=== PATIENT | female | born 1945 | race Native Hawaiian/Other Pacific Islander ===

== ENCOUNTER 2016-08-07 13:37 | Outpatient (CLI) | payer OTHER ==
[~2016-08-07 13:37] MED LIST: ALL DAY ALLERGY10 M1 PO; ALLEGRA ALRG180 M1 PO; AVIDOXY100 MG PO; B COMPLE IJ; BENZONATATE200 MG PO; CIPRO500 MG PO; DICY20TA34 PO; ENALAPRIL10 MG PO; ESTR0.6211 PO; FLUT0.05 NAS; HYDR12.54; HYDR25TA15 PO; LATA0.00 OPTH; LEVAQUIN500 MG PO; MACROBID100 MG PO; OMEP20CA PO; OMEPRAZOLE40 MG OR; OMEPRAZOLE40 MG PO; ONDA4TAB3 PO; SOMA250 MG PO; VESICARE5 MG PO; XALATAN0.005 % OP; Z-PAK PO; [UNRECOGNIZED DRUG - OTHER] IM; [UNRECOGNIZED DRUG - OTHER] OPTH; [UNRECOGNIZED DRUG - REMARK] OR
== END 2016-08-07 19:20 | disposition home or self-care (01) ==
LOC: MRI 13:37
DX: M43.12 Spondylolisthesis, cervical region (principal)

== ENCOUNTER 2016-09-09 10:29 | Outpatient (CLI) | payer OTHER | END 2016-09-09 23:41 | disposition home or self-care (01) | LOC: LABW 10:29 | DX: K64.0 First degree hemorrhoids (principal) | CPT/HCPCS: 82272 ==

== ENCOUNTER 2016-09-09 17:00 | Outpatient (CLI) | payer OTHER | END 2016-09-09 23:51 | disposition home or self-care (01) | LOC: LAB 17:00 | DX: N39.0 Urinary tract infection, site not specified (principal) | CPT/HCPCS: 87077; 87086; 87088; 87186 ==

== ENCOUNTER 2017-03-17 13:15 | Outpatient (CLI) | payer OTHER | END 2017-03-17 14:15 | disposition home or self-care (01) | LOC: LAB 13:15 | DX: N39.0 Urinary tract infection, site not specified (principal) | CPT/HCPCS: 87077; 87086; 87088; 87186 ==

== ENCOUNTER 2017-04-11 10:42 | Outpatient (CLI) | payer OTHER ==
[2017-04-11 11:09] LABS: PLATELET COUNT 359 K/uL (152-353)
[2017-04-11 11:28] LABS: POTASSIUM 3.7 mmol/L (3.6-5.2)
== END 2017-04-11 11:45 | disposition home or self-care (01) ==
LOC: LABW 10:42
PROVIDERS: Internal Medicine
DX: R41.82 Altered mental status, unspecified (principal)
CPT/HCPCS: 36415; 80053; 81000; 83880; 84443; 85027; 85379

== ENCOUNTER 2017-05-19 15:44 | Outpatient (CLI) | payer OTHER | END 2017-05-19 19:06 | disposition home or self-care (01) | LOC: RAD 15:44 | DX: R63.4 Abnormal weight loss (principal) ==

== ENCOUNTER 2017-07-30 12:45 | Outpatient (CLI) | payer OTHER | END 2017-07-30 22:04 | disposition home or self-care (01) | LOC: LAB 12:45 | DX: N39.0 Urinary tract infection, site not specified (principal) | CPT/HCPCS: 87077; 87086; 87088; 87186 ==

== ENCOUNTER 2017-08-16 19:39 | Observation (INO) | payer OTHER ==
[~2017-08-16] VITALS: Ht 152.4 cm; Wt 55.1 kg
[2017-08-16 19:35] VITALS: BP 145/62; TEMP 97.7
[2017-08-16 20:05] VITALS: BP 136/54
[2017-08-16 20:26] LABS: PLATELET COUNT 203 K/uL (152-353)
[2017-08-16 20:34] LABS: POTASSIUM 3.8 mmol/L (3.6-5.2); SODIUM 135 mmol/L (136-145)
[2017-08-16 20:50] LABS: PARTIAL THROMBOPLASTIN TIME 26.1 SECONDS (24.5-33.6)
[2017-08-16 21:15] VITALS: BP 145/74
[2017-08-16] MEDS ORDERED: BENTYL10 MG PO (22:52)
[2017-08-16] MEDS ORDERED: ZOFRAN ODT4 MG PO (22:52)
[2017-08-16] MEDS ORDERED: TRAM50TA PO (22:53)
[2017-08-16] MEDS ORDERED: PROTONIX20 MG PO (22:53)
[2017-08-16] MEDS ORDERED: CYCL10TA35 PO (22:54)
[2017-08-16 23:47] VITALS: BP 149/82; TEMP 97.4; Ht 152.4 cm; Wt 55.1 kg
[2017-08-17 04:00] VITALS: BP 118/78; TEMP 98.6
[2017-08-17 06:37] LABS: PLATELET COUNT 179 K/uL (152-353)
[2017-08-17 07:41] LABS: POTASSIUM 3.9 mmol/L (3.6-5.2)
[2017-08-17 08:00] VITALS: BP 135/75; TEMP 98.4
[2017-08-17 09:33] LABS: PLATELET COUNT 179 K/uL (152-353)
[2017-08-17 09:52] LABS: POTASSIUM 3.5 mmol/L (3.6-5.2)
[2017-08-17 12:00] VITALS: BP 132/68; TEMP 98.4
[2017-08-17 16:00] VITALS: BP 140/69; TEMP 98.3
[2017-08-17 20:21] VITALS: BP 149/79; TEMP 98
[2017-08-18] VITALS: BP 161/78; TEMP 98.2
[2017-08-18 04:00] VITALS: BP 168/71; TEMP 98.6
[2017-08-18 06:01] LABS: POTASSIUM 3.6 mmol/L (3.6-5.2)
[2017-08-18 06:32] LABS: PLATELET COUNT 177 K/uL (152-353)
[2017-08-18 08:00] VITALS: BP 170/80; TEMP 98.2
== END 2017-08-18 10:15 | disposition home or self-care (01) ==
LOC: ED 19:39 → MED/SURG 21:59
PROVIDERS: Internal Medicine
DX: R55 Syncope and collapse (principal); N39.0 Urinary tract infection, site not specified; N81.6 Rectocele; R10.84 Generalized abdominal pain; E86.0 Dehydration; R11.2 Nausea with vomiting, unspecified
CPT/HCPCS: 36415; 80053; 82150; 82550; 83690; 84484; 85027; 85610; 85730; 87205; 87328; 87329; 93005; 93225; 96360; 96361; 96366; 96374; 96375; 99220; 99284; G0378; J1170; J2405

== ENCOUNTER 2017-08-27 10:41 | Outpatient (CLI) | payer OTHER ==
[~2017-08-27 10:41] MED LIST changes: +BENTYL10 MG PO; +CYCL10TA35 PO; +PROTONIX20 MG PO; +TRAM50TA PO; +ZOFRAN ODT4 MG PO
[2017-08-27 11:15] LABS: PLATELET COUNT 210 K/uL (152-353)
== END 2017-08-27 22:18 | disposition home or self-care (01) ==
LOC: LABW 10:41
PROVIDERS: Internal Medicine
DX: D50.8 Other iron deficiency anemias (principal)
CPT/HCPCS: 36415; 83540; 85027

== ENCOUNTER 2017-09-30 14:29 | Outpatient (CLI) | payer OTHER | END 2017-10-01 14:29 | disposition home or self-care (01) | LOC: MRI 14:29 | DX: R20.0 Anesthesia of skin (principal); M47.22 Other spondylosis with radiculopathy, cervical region ==

== ENCOUNTER 2018-01-13 07:55 | Outpatient (CLI) | payer OTHER | END 2018-01-13 23:29 | disposition home or self-care (01) | LOC: RAD 07:55 | DX: M85.88 Other specified disorders of bone density and structure, other site (principal) ==

== ENCOUNTER 2018-04-02 08:14 | Outpatient (CLI) | payer OTHER ==
[2018-04-02 08:30] LABS: PLATELET COUNT 254 K/uL (152-353)
[2018-04-02 09:12] LABS: POTASSIUM 4.4 mmol/L (3.6-5.2); SODIUM 138 mmol/L (136-145)
== END 2018-04-02 19:34 | disposition home or self-care (01) ==
LOC: LABW 08:14
PROVIDERS: Internal Medicine
DX: I10 Essential (primary) hypertension (principal)
CPT/HCPCS: 36415; 80053; 80061; 84439; 84443; 85027

== ENCOUNTER 2018-04-09 12:41 | Outpatient (CLI) | payer OTHER | END 2018-04-09 22:19 | disposition home or self-care (01) | LOC: US 12:41 | DX: N13.30 Unspecified hydronephrosis (principal) ==

== ENCOUNTER 2018-04-30 07:43 | Outpatient (CLI) | payer OTHER | END 2018-04-30 19:19 | disposition home or self-care (01) | LOC: LABW 07:43 | PROVIDERS: Internal Medicine | DX: R79.89 Other specified abnormal findings of blood chemistry (principal) | CPT/HCPCS: 36415; 80069; 81000 ==

== ENCOUNTER 2018-12-21 12:33 | Outpatient (CLI) | payer OTHER | END 2018-12-21 19:21 | disposition home or self-care (01) | LOC: LAB 12:33 | DX: N39.0 Urinary tract infection, site not specified (principal) | CPT/HCPCS: 81000; 87077; 87086; 87088; 87186 ==

== ENCOUNTER 2019-01-15 21:06 | Outpatient (CLI) | payer OTHER ==
[~2019-01-15 21:06] MED LIST changes: +AMLO5TAB PO; +ASPIRIN 8181 MG PO; +BACLOFEN10 MG PO; +CLON1TAB18 PO; +DIPH50CA30 PO; +EQ LAXATIVE25 MG OR; +ESTR1TAB13 PO; +ESTRACE2 MG PO; +FENT25DI TD; +FORTAMET500 MG PO; +GABA300C2 PO; +GLIM4TAB PO; +GRALISE600 MG OR; +HUMALOG100 MG/ML SC; +HYDR5TAB9 PO; +INSUINJP SC; +LIPITOR20 MG PO; +LISI10TA11 PO; +MECLIZINE25 MG OR; +NABUMETONE500 MG PO; +PAROXETIN ER12.5 MG OR; +PAROXETINE20 MG OR; +SIMV20TA2 PO; +TRAZ50TA36 PO; +VITAMIN D H1000 UNIT OR; +[UNRECOGNIZED DRUG - OTHER] PO
[2019-01-15] MEDS ORDERED: DICYCLOMINE HYD10 MG PO (21:31)
[2019-01-15] MEDS ORDERED: VITAMIN D32000 UNIT PO (21:32)
[2019-01-15] MEDS ORDERED: ENALAPRIL10 MG PO (21:33)
[2019-01-15] MEDS ORDERED: ALLERGY RELIEF180 MG PO (21:33)
[2019-01-15] MEDS ORDERED: PANTOPRAZOLE SO40 M1 PO (21:33)
[2019-01-15] MEDS ORDERED: ONDANSETRON4 M2 PO (21:34)
[2019-01-15] MEDS ORDERED: CYCLOBENZAPRINE5 MG PO (21:34)
[2019-01-15] MEDS ORDERED: SM IBUPROFEN100 MG PO (21:35)
[2019-01-15] MEDS ORDERED: ALLERGY RELIEF25 MG PO (21:35)
[2019-01-15] MEDS ORDERED: CALCIUM600 M2 PO (21:36)
[2019-01-15] MEDS ORDERED: TYLENOL325 MG PO (21:36)
[2019-01-16] MEDS ORDERED: CALCIUM600 M1 PO (06:35)
[2019-01-16] MEDS ORDERED: CYCL10TA35 PO (06:36)
[2019-01-16] MEDS ORDERED: DICYCLOMINE HYD10 MG PO (06:37)
[2019-01-16] MEDS ORDERED: EQ ALLERGY REL180 MG PO (06:38)
[2019-01-16] MEDS ORDERED: VITAMIN D32000 UNIT PO (06:38)
[2019-01-16] MEDS ORDERED: ENALAPRIL10 MG PO (06:39)
[2019-01-16] MEDS ORDERED: PANTOPRAZOLE 40MG TA PO ×2 (06:40→10:03)
[2019-01-16] MEDS ORDERED: ONDA4TAB3 PO (09:53)
[2019-01-16] MEDS ORDERED: ALLERGY RELIEF25 M1 PO (09:57)
== END 2019-01-15 21:09 | disposition short-term general hospital (02) ==
LOC: AMB 21:06
DX: R55 Syncope and collapse (principal); R10.84 Generalized abdominal pain; R19.7 Diarrhea, unspecified
CPT/HCPCS: A0425; A0427

== ENCOUNTER 2019-01-15 21:18 | Observation (INO) | payer OTHER ==
[~2019-01-15] VITALS: Ht 154.9 cm; Wt 63.6 kg
[2019-01-15] MEDS ORDERED: DICYCLOMINE HYD10 MG PO (21:31)
[2019-01-15] MEDS ORDERED: VITAMIN D32000 UNIT PO (21:32)
[2019-01-15] MEDS ORDERED: ENALAPRIL10 MG PO (21:33)
[2019-01-15] MEDS ORDERED: PANTOPRAZOLE SO40 M1 PO (21:33)
[2019-01-15] MEDS ORDERED: ALLERGY RELIEF180 MG PO (21:33)
[2019-01-15] MEDS ORDERED: CYCLOBENZAPRINE5 MG PO (21:34)
[2019-01-15] MEDS ORDERED: ONDANSETRON4 M2 PO (21:34)
[2019-01-15] MEDS ORDERED: ALLERGY RELIEF25 MG PO (21:35)
[2019-01-15] MEDS ORDERED: SM IBUPROFEN100 MG PO (21:35)
[2019-01-15] MEDS ORDERED: TYLENOL325 MG PO (21:36)
[2019-01-15] MEDS ORDERED: CALCIUM600 M2 PO (21:36)
[2019-01-16] VITALS (15 sets, daily range): BP systolic 112–144; BP diastolic 51–87; TEMP 98–98.7
[2019-01-16] MEDS ORDERED: CALCIUM600 M1 PO (06:35)
[2019-01-16] MEDS ORDERED: CYCL10TA35 PO (06:36)
[2019-01-16] MEDS ORDERED: DICYCLOMINE HYD10 MG PO (06:37)
[2019-01-16] MEDS ORDERED: EQ ALLERGY REL180 MG PO (06:38)
[2019-01-16] MEDS ORDERED: VITAMIN D32000 UNIT PO (06:38)
[2019-01-16] MEDS ORDERED: ENALAPRIL10 MG PO (06:39)
[2019-01-16] MEDS ORDERED: PANTOPRAZOLE 40MG TA PO ×2 (06:40→10:03)
[2019-01-16] MEDS ORDERED: ONDA4TAB3 PO (09:53)
[2019-01-16] MEDS ORDERED: ALLERGY RELIEF25 M1 PO (09:57)
[2019-01-17] VITALS (17 sets, daily range): BP systolic 119–170; BP diastolic 63–88; TEMP 97.4–98.5
[2019-01-17 06:26] LABS: PLATELET COUNT 177 K/uL (152-353)
[2019-01-17 06:38] LABS: POTASSIUM 4.7 mmol/L (3.6-5.2)
[2019-01-18 00:04] VITALS: BP 190/86; TEMP 97.8
[2019-01-18 04:00] VITALS: BP 151/75; TEMP 97.6
[2019-01-18 05:29] LABS: PLATELET COUNT 174 K/uL (152-353)
[2019-01-18 05:46] LABS: POTASSIUM 4.3 mmol/L (3.6-5.2)
[2019-01-18 08:00] VITALS: BP 176/71; TEMP 97.8
[2019-01-18 12:00] VITALS: BP 162/72; TEMP 98.5
== END 2019-01-18 16:00 | disposition home or self-care (01) ==
LOC: ED 21:18 → ICU 01-16 00:56 → MED/SURG 01-17 14:15
PROVIDERS: Family Medicine; Internal Medicine Hematology & Oncology; ADMIT Emergency Medicine
DX: R55 Syncope and collapse (principal); E86.0 Dehydration; K31.84 Gastroparesis; D50.8 Other iron deficiency anemias; D51.9 Vitamin B12 deficiency anemia, unspecified; I12.9 Hypertensive chronic kidney disease with stage 1 through stage 4 chronic kidney disease, or unspecified chronic kidney disease; N18.4 Chronic kidney disease, stage 4 (severe); N39.0 Urinary tract infection, site not specified; E83.42 Hypomagnesemia; R19.7 Diarrhea, unspecified; N81.6 Rectocele
CPT/HCPCS: 36415; 80048; 80053; 81000; 82550; 82553; 82607; 82728; 82746; 83540; 83550; 83735; 84439; 84443; 84484; 85027; 87077; 87086; 87088; 87186; 93005; 93306; 96360; 96361; 96375; 99220; 99285; G0378; J1885; J2405

== ENCOUNTER 2019-02-14 08:53 | Outpatient (CLI) | payer OTHER ==
[~2019-02-14 08:53] MED LIST changes: +ALLERGY RELIEF180 MG PO; +ALLERGY RELIEF25 M1 PO; +ALLERGY RELIEF25 MG PO; +CALCIUM600 M1 PO; +CALCIUM600 M2 PO; +CYCLOBENZAPRINE5 MG PO; +DICYCLOMINE HYD10 MG PO; +EQ ALLERGY REL180 MG PO; +ONDANSETRON4 M2 PO; +PANTOPRAZOLE 40MG TA PO; +PANTOPRAZOLE SO40 M1 PO; +SM IBUPROFEN100 MG PO; +TYLENOL325 MG PO; +VITAMIN D32000 UNIT PO
[2019-02-14 09:07] LABS: PLATELET COUNT 273 K/uL (152-353)
[2019-02-14 09:51] LABS: POTASSIUM 4.6 mmol/L (3.6-5.2)
== END 2019-02-15 05:46 | disposition home or self-care (01) ==
LOC: LABW 08:53
PROVIDERS: Internal Medicine Gastroenterology
DX: D50.8 Other iron deficiency anemias (principal)
CPT/HCPCS: 36415; 80053; 85027

== ENCOUNTER 2019-07-25 11:44 | Outpatient (CLI) | payer OTHER | END 2019-07-25 22:35 | disposition home or self-care (01) | LOC: RAD 11:44 | DX: R05 Cough (principal) ==

== ENCOUNTER 2020-08-07 09:58 | Outpatient (CLI) | payer OTHER ==
[2020-08-07 10:26] LABS: PLATELET COUNT 203 K/uL (152-353)
[2020-08-07 10:47] LABS: POTASSIUM 4.8 mmol/L (3.6-5.2)
== END 2020-08-07 23:17 | disposition home or self-care (01) ==
LOC: LAB 09:58
PROVIDERS: ATTEND Internal Medicine Gastroenterology
DX: K64.8 Other hemorrhoids (principal); R50.9 Fever, unspecified; Z11.59 Encounter for screening for other viral diseases
CPT/HCPCS: 36415; 80053; 82272; 85027; 87635; G2023; U0003

== ENCOUNTER 2020-09-05 08:19 | Outpatient (CLI) | payer OTHER ==
[2020-09-05 08:54] LABS: PLATELET COUNT 212 K/uL (152-353)
== END 2020-09-05 21:37 | disposition home or self-care (01) ==
LOC: LABW 08:19
PROVIDERS: ATTEND Internal Medicine
DX: Z00.00 Encounter for general adult medical examination without abnormal findings (principal); Z13.820 Encounter for screening for osteoporosis; Z79.899 Other long term (current) drug therapy
CPT/HCPCS: 36415; 80053; 80061; 81000; 82306; 84439; 84443; 85027

== ENCOUNTER 2020-09-10 10:24 | Outpatient (CLI) | payer OTHER | END 2020-09-10 19:23 | disposition home or self-care (01) | LOC: MAMMO 10:24 → RAD 11:00 → MAMMO 19:23 | PROVIDERS: ATTEND Internal Medicine | DX: Z12.31 Encounter for screening mammogram for malignant neoplasm of breast (principal); Z13.820 Encounter for screening for osteoporosis; N95.8 Other specified menopausal and perimenopausal disorders ==

== ENCOUNTER 2020-11-01 08:35 | Outpatient (CLI) | payer OTHER ==
[2020-11-01 08:51] LABS: PLATELET COUNT 212 K/uL (152-353)
== END 2020-11-01 20:58 | disposition home or self-care (01) ==
LOC: LABW 08:35
PROVIDERS: ATTEND Internal Medicine Gastroenterology
DX: D50.8 Other iron deficiency anemias (principal)
CPT/HCPCS: 36415; 80053; 85027

== ENCOUNTER 2021-02-05 09:04 | Outpatient (CLI) | payer OTHER ==
[2021-02-05 09:26] LABS: PLATELET COUNT 239 K/uL (152-353)
[2021-02-05 09:40] LABS: POTASSIUM 4.1 mmol/L (3.6-5.2)
== END 2021-02-05 21:34 | disposition home or self-care (01) ==
LOC: LABW 09:04
PROVIDERS: ATTEND Internal Medicine
DX: R10.30 Lower abdominal pain, unspecified (principal)
CPT/HCPCS: 36415; 80053; 81000; 85027

== ENCOUNTER 2021-02-08 07:41 | Outpatient (CLI) | payer OTHER | END 2021-02-08 19:05 | disposition home or self-care (01) | LOC: CT 07:41 | PROVIDERS: ATTEND Internal Medicine | DX: R10.30 Lower abdominal pain, unspecified (principal); R11.2 Nausea with vomiting, unspecified ==

== ENCOUNTER 2021-08-21 08:31 | Outpatient (CLI) | payer OTHER ==
[2021-08-21 08:57] LABS: PLATELET COUNT 216 K/uL (152-353)
[2021-08-21 11:14] LABS: POTASSIUM 4.6 mmol/L (3.6-5.2)
== END 2021-08-21 19:33 | disposition home or self-care (01) ==
LOC: LABW 08:31
PROVIDERS: ATTEND Internal Medicine
DX: N18.4 Chronic kidney disease, stage 4 (severe) (principal); Z79.899 Other long term (current) drug therapy
CPT/HCPCS: 36415; 80053; 80061; 81000; 84443; 85027

== ENCOUNTER 2021-11-12 10:52 | Outpatient (CLI) | payer OTHER ==
[2021-11-12 11:09] LABS: PLATELET COUNT 212 K/uL (152-353)
== END 2021-11-12 19:43 | disposition home or self-care (01) ==
LOC: LABW 10:52
PROVIDERS: ATTEND Internal Medicine Nephrology
DX: N18.4 Chronic kidney disease, stage 4 (severe) (principal); R82.998 Other abnormal findings in urine
CPT/HCPCS: 36415; 80069; 81000; 82043; 82570; 83970; 84156; 85027; 87077; 87086; 87088; 87186

== ENCOUNTER 2021-12-10 08:54 | Outpatient (CLI) | payer OTHER | END 2021-12-10 19:27 | disposition home or self-care (01) | LOC: LABW 08:54 | PROVIDERS: ATTEND Internal Medicine Nephrology | DX: N18.4 Chronic kidney disease, stage 4 (severe) (principal) | CPT/HCPCS: 36415; 80069 ==

== ENCOUNTER 2021-12-21 11:38 | Emergency (ER) | payer OTHER ==
[~2021-12-21] VITALS: Ht 154.9 cm; Wt 63.5 kg
[2021-12-21 11:49] VITALS: TEMP 97.1
[2021-12-21 12:39] LABS: POTASSIUM 4.8 mmol/L (3.6-5.2)
[2021-12-21 12:51] LABS: PLATELET COUNT 226 K/uL (152-353)
[2021-12-21 15:46] VITALS: BP 161/62
== END 2021-12-21 16:41 | disposition short-term general hospital (02) ==
LOC: ED 11:38
PROVIDERS: Family Medicine
PROC: 0D9670Z Drainage of Stomach with Drainage Device, Via Natural or Artificial Opening (ICD-10-PCS; principal; 2021-12-21)
DX: N39.0 Urinary tract infection, site not specified (principal); R10.13 Epigastric pain; R11.2 Nausea with vomiting, unspecified; Z11.52 Encounter for screening for COVID-19
CPT/HCPCS: 36415; 43754; 80053; 81000; 82150; 83690; 85027; 87077; 87086; 87088; 87186; 87635; 96360; 96361; 96365; 96375; 99284; J0696; J1885; J2175; J2405; U0003

== ENCOUNTER 2022-02-20 14:29 | Emergency (ER) | payer OTHER ==
[~2022-02-20] VITALS: Ht 154.9 cm; Wt 62.6 kg
[2022-02-20 14:39] VITALS: TEMP 98
[2022-02-20 14:59] LABS: PLATELET COUNT 218 K/uL (152-353)
[2022-02-20 15:05] LABS: POTASSIUM 4.6 mmol/L (3.6-5.2)
[2022-02-20 15:20] LABS: PARTIAL THROMBOPLASTIN TIME 26.8 SECONDS (24.5-33.6)
[2022-02-20 16:43] VITALS: BP 128/60
== END 2022-02-20 16:46 | disposition home or self-care (01) ==
LOC: ED 14:29
PROVIDERS: Emergency Medicine
DX: R55 Syncope and collapse (principal); E86.0 Dehydration; D64.89 Other specified anemias
CPT/HCPCS: 36415; 80053; 83880; 84484; 85027; 85610; 85730; 93005; 96360; 96374; 99284; J2405

== ENCOUNTER 2022-03-05 11:48 | Outpatient (CLI) | payer OTHER | END 2022-03-05 20:01 | disposition home or self-care (01) | LOC: LAB 11:48 | PROVIDERS: ATTEND Internal Medicine | DX: U07.1 COVID-19 (principal); J40 Bronchitis, not specified as acute or chronic; Z11.52 Encounter for screening for COVID-19 | CPT/HCPCS: 87635; G2023; U0003 ==

== ENCOUNTER 2022-03-14 12:40 | Emergency (ER) | payer OTHER ==
[~2022-03-14] VITALS: Ht 154.9 cm; Wt 62.6 kg
[2022-03-14 12:44] VITALS: TEMP 97.1
[2022-03-14 13:28] LABS: PLATELET COUNT 291 K/uL (152-353)
[2022-03-14 13:40] LABS: POTASSIUM 5.3 mmol/L (3.6-5.2)
[2022-03-14 14:14] VITALS: BP 138/44
== END 2022-03-14 15:54 | disposition short-term general hospital (02) ==
LOC: ED 12:40
PROVIDERS: Emergency Medicine
DX: K56.699 Other intestinal obstruction unspecified as to partial versus complete obstruction (principal); E27.49 Other adrenocortical insufficiency; U07.1 COVID-19
CPT/HCPCS: 36415; 80053; 83690; 84484; 85027; 87635; 93005; 96360; 96374; 96375; 99284; J1170; J2270; J2405; J3490; U0003

== ENCOUNTER 2022-05-09 11:04 | Outpatient (CLI) | payer OTHER ==
[2022-05-09 11:36] LABS: PLATELET COUNT 270 K/uL (152-353)
[2022-05-09 12:21] LABS: POTASSIUM 4.8 mmol/L (3.6-5.2)
== END 2022-05-09 18:52 | disposition home or self-care (01) ==
LOC: LABW 11:04
PROVIDERS: ATTEND Internal Medicine Nephrology
DX: N18.4 Chronic kidney disease, stage 4 (severe) (principal)
CPT/HCPCS: 36415; 80069; 81002; 82043; 82570; 83970; 84156; 85027

== ENCOUNTER 2022-08-05 11:40 | Outpatient (CLI) | payer OTHER | END 2022-08-05 19:18 | disposition home or self-care (01) | LOC: RAD 11:40 | PROVIDERS: ATTEND Internal Medicine | DX: S39.012A Strain of muscle, fascia and tendon of lower back, initial encounter (principal); Y92.89 Other specified places as the place of occurrence of the external cause ==

== ENCOUNTER 2022-09-10 10:03 | Outpatient (CLI) | payer OTHER ==
[2022-09-10 10:27] LABS: PLATELET COUNT 202 K/uL (152-353)
[2022-09-10 10:34] LABS: POTASSIUM 4.2 mmol/L (3.6-5.2)
== END 2022-09-10 19:21 | disposition home or self-care (01) ==
LOC: LABW 10:03
PROVIDERS: ATTEND Internal Medicine Nephrology
DX: N18.4 Chronic kidney disease, stage 4 (severe) (principal); R82.998 Other abnormal findings in urine
CPT/HCPCS: 36415; 80069; 81000; 82043; 82570; 83970; 84156; 85027; 87077; 87086; 87088; 87186

== ENCOUNTER 2023-01-21 10:24 | Outpatient (CLI) | payer OTHER ==
[2023-01-21 11:07] LABS: PLATELET COUNT 242 K/uL (152-353)
[2023-01-21 11:10] LABS: POTASSIUM 4.3 mmol/L (3.6-5.2)
== END 2023-01-21 19:00 | disposition home or self-care (01) ==
LOC: LABW 10:24
PROVIDERS: ATTEND Internal Medicine Nephrology
DX: N18.4 Chronic kidney disease, stage 4 (severe) (principal)
CPT/HCPCS: 36415; 80069; 81002; 82570; 83970; 84156; 85027

== ENCOUNTER 2023-02-14 14:39 | Emergency (ER) | payer OTHER ==
[~2023-02-14] VITALS: Ht 154.9 cm; Wt 54.4 kg
[2023-02-14 15:11] LABS: PLATELET COUNT 299 K/uL (152-353)
[2023-02-14 15:18] LABS: POTASSIUM 3.4 mmol/L (3.6-5.2)
[2023-02-14 15:25] LABS: PARTIAL THROMBOPLASTIN TIME 28.6 SECONDS (23.9-36.7)
[2023-02-14 16:10] VITALS: BP 85/37; TEMP 98.2
== END 2023-02-14 16:10 | disposition short-term general hospital (02) ==
LOC: ED 14:39
PROVIDERS: Family Medicine
DX: I95.9 Hypotension, unspecified (principal); R10.9 Unspecified abdominal pain
CPT/HCPCS: 80053; 81002; 82150; 82272; 82550; 83605; 83690; 83735; 84484; 85027; 85379; 85610; 85730; 93005; 96361; 96365; 96366; 96375; 99285; J2175; J2405; J2543; J3490; Q9963